=== PATIENT | male | born 1950 | race Caucasian/White ===

== ENCOUNTER 2020-09-27 13:01 | Emergency (ER) | payer OTHER ==
[~2020-09-27] VITALS: Ht 175.3 cm; Wt 105.7 kg
[2020-09-27 13:31] LABS: ABSOLUTE BASOPHILS 0.1 thou/uL (0.0-0.2); ABSOLUTE LYMPHOCYTES 1.9 thou/uL (0.8-5.3); ABSOLUTE MONOCYTES 0.2 thou/uL (0.0-1.2); BASOPHILS 2.8 %; EOSINOPHILS 0.2 %; HEMATOCRIT 24.1 % (42.0-52.0); HEMOGLOBIN 7.7 gm/dL (14.0-18.0); LYMPHOCYTES 45.9 %; MCH 23.3 pg (26.0-34.0); MCHC 32.2 g/dL (28.0-37.0); MCV 72.2 fL (80.0-100.0); MONOCYTES 4.1 %; MPV 8.4 fl. (7.2-11.1); NUCLEATED RBCS 0 /100WBC; PLATELET COUNT* 215 thou/uL (150-400); RBC 3.33 mil/uL (4.50-6.00); RDW-CV 37.1 % (10.5-14.5); WBC 4.2 thou/uL (4.0-11.0)
[2020-09-27 13:42] LABS: CREATININE 1.4 mg/dL (0.6-1.3); POTASSIUM 3.7 mmol/L (3.5-5.1)
[2020-09-27 13:45] LABS: INR 1.2
[2020-09-27 13:53] LABS: ALBUMIN 3.7 g/dL (3.4-5.0); TOTAL BILIRUBIN 1.7 mg/dL (<0.1-1.0); TOTAL PROTEIN 7.3 g/dL (6.4-8.2)
[2020-09-27] MEDS ORDERED: PREDNISONE 20 M20 M1 PO (14:57)
[2020-09-27] MEDS ORDERED: ZPAK PO (14:57)
[2020-09-27] MEDS ORDERED: ZOFRAN ODT4 MG SUBLING (14:57)
[2020-09-27 15:23] VITALS: BP 145/68
--- NOTE | 2020-09-27 16:33 | EKG ---
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: : 1950 Requested By: Kilo Mtz Order Number: [id number] MD: Sridhar Kong Measurements Intervals [place] Rate: 80 P: 62 PA: 150 QRS: 53 QRSD: 102 T: -19 QT: 387 QTc: 447 Interpretive Statements Sinus rhythm artifact noted Low voltage, precordial leads Borderline repolarization abnormality No previous ECG available for comparison Electronically Signed On 09-27-2020 16:33:37 [employer]ACH[employer]AD[employer] by Sridhar Kong [email or web address] <ELECTRONICALLY SIGNED> By: Sridhar Kong MD, [facility] 09/27/20 1633 1308 1308 Sridhar Kong MD, [facility] /EPI
== END 2020-09-27 15:25 | disposition home or self-care (01) ==
LOC: M.ERS 13:01
PROVIDERS: Family Medicine
DX: U07.1 COVID-19 (principal)